=== PATIENT | female | born 2005 | race Hispanic/Latino ===

== ENCOUNTER 2023-10-21 20:28 | Day surgery (SDC) | payer MEDICAID, OTHER, SELFPAY ==
[2023-10-21] MEDS ORDERED: hydrALAZINE 20 MG/ML VIAL SLOW IVP PRN (21:28)
[2023-10-21 22:54] LABS: Bilirubin Neg (Negative); Blood, Urine Negative (Negative); Clarity Clear (Clear); Glucose, Urine (Dipstick) Normal (Negative); Ketone, Urine Negative (Negative); Leukocyte Negative (Negative); Nitrite Negative (Negative); Protein, Urine (Dipstick) 30 mg/dl (Neg-Trace); Specific Gravity, Urine 1.005 (1.005-1.030); Urobilinogen Normal mg/dL (Less than 2)
[2023-10-21 23:15] LABS: CAUTI Indications for Culture Pelvic or flank pain; RBC/HPF 0-3 HPF (0-3); Squamous Epithelial 0-3 HPF (0-3); WBC/HPF 0-3 HPF (0-3)
[2023-10-21 23:16] LABS: Bacteria/HPF 1+ HPF (None Seen); Urine Culture Reflex No No
[2023-10-21] MEDS ORDERED: cefTRIAXone (ROCEPHIN) 1 GM VIAL IM SCH (23:45)
[2023-10-22 00:01] VITALS: BMI 26.6
[2023-10-22] MEDS ORDERED: Sodium Chloride 0.9% 1,000 ML IV SCH (00:15)
[2023-10-22] MEDS: cefTRIAXone\\ROCEPHIN 1 GM in Sodium Chloride 0.9% 100 ML IVPB SCH (00:50)
== END 2023-10-22 02:45 | disposition home or self-care (01) ==
LOC: CSHLD/OP 20:28
PROVIDERS: ATTEND Family Medicine
DX: O47.1 False labor at or after 37 completed weeks of gestation (principal); O23.43 Unspecified infection of urinary tract in pregnancy, third trimester; R35.0 Frequency of micturition; R30.0 Dysuria; R39.15 Urgency of urination; Z79.899 Other long term (current) drug therapy; Z3A.39 39 weeks gestation of pregnancy
CPT/HCPCS: 81001; 87086; 96365; 96366; 99285; J0696